=== PATIENT | male | born 1985 | race Caucasian/White ===

== ENCOUNTER 2017-05-24 10:32 | Emergency (ER) | payer OTHER ==
[~2017-05-24] VITALS: Ht 177.8 cm; Wt 99.8 kg
[2017-05-24 10:43] VITALS: BP_SYST 146
[2017-05-24] MEDS ORDERED: IBUPROFEN 800 MG TABLET ONE (11:44)
[2017-05-24] MEDS ORDERED: IBUPROFEN 800 MG TABLET PO ONE (11:45)
[2017-05-24] MEDS ORDERED: BACITRACIN 1 GM OINT TP ONE ×2 (11:45→11:50)
[2017-05-24 11:52] VITALS: BP_SYST 135
== END 2017-05-24 11:52 | disposition home or self-care (01) ==
LOC: SED 10:32
DX: L03.031 Cellulitis of right toe (principal)
CPT/HCPCS: 99283

== ENCOUNTER 2018-11-06 17:27 | Emergency (ER) | payer OTHER ==
[~2018-11-06] VITALS: Ht 177.8 cm; Wt 104.3 kg
[2018-11-06 17:27] VITALS: BP_SYST 145
--- NOTE | 2018-11-06 17:27 | NUR ---
Patient triaged and placed in waiting room. VSS and patient appears in no acute distress at this time. Accompanied by GIRLFRIEND, awaiting available bed, and MD notified of need for MSE.
--- NOTE | 2018-11-06 17:46 | NUR ---
Patient to ER bed 03 for evaluation. Side rails up. Report given to Shanice TAYLOR.
--- NOTE | 2018-11-06 17:50 | NUR ---
DR AKHTAR AT BEDSIDE FOR EVALUATION
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
--- NOTE | 2018-11-06 18:04 | NUR ---
Pt taken to radiology via wheelchair in stable condition
--- NOTE | 2018-11-06 18:17 | NUR ---
PATIENT BACK FROM RADIOLOGY IN STABLE CONDITION. PATIENT STILL COMPLAINING OF PAIN IN NECK AND SHOULDERS. PATIENT STATES HIS HEADACHE IS WORST AT 9/10. SAID HE FEELS TIGHT, PRESSURE AND TIRED. PATIENT DENING DIZZINESS.
[2018-11-06 19:02] VITALS: BP_SYST 137
--- NOTE | 2018-11-06 19:02 | NUR ---
Patient given written and verbal discharge instructions and verbalizes understanding. ER MD Andersen discussed with patient the results and treatment provided. Patient in stable condition. ID arm band removed. Rx of Naprosyn given. Patient educated on pain management and to follow up with PMD. Pain Scale 0. Opportunity for questions provided and answered. Medication side effect fact sheet provided.
== END 2018-11-06 19:02 | disposition home or self-care (01) ==
LOC: SED 17:27
DX: S16.1XXA Strain of muscle, fascia and tendon at neck level, initial encounter (principal); S40.011A Contusion of right shoulder, initial encounter; R03.0 Elevated blood-pressure reading, without diagnosis of hypertension; V43.52XA Car driver injured in collision with other type car in traffic accident, initial encounter; Y93.89 Activity, other specified; Y92.410 Unspecified street and highway as the place of occurrence of the external cause; Y99.8 Other external cause status
CPT/HCPCS: 72125-TC; 73030; 99284

== ENCOUNTER 2021-06-26 09:17 | Emergency (ER) | payer OTHER ==
[~2021-06-26] VITALS: Ht 177.8 cm; Wt 113.4 kg
[2021-06-26 09:39] VITALS: BP_SYST 136
[2021-06-26 11:48] LABS: BILIRUBIN,URINE NEGATIVE (NEGATIVE); BLOOD, URINE 1+ (NEGATIVE); COLOR,URINE YELLOW (YELLOW); GLUCOSE,URINE NEGATIVE (NEGATIVE); KETONES,URINE NEGATIVE (NEGATIVE); LEUKOCYTE ESTERASE ,URINE NEGATIVE (NEGATIVE); NITRITE, URINE NEGATIVE (NEGATIVE); PROTEIN URINE NEGATIVE (NEGATIVE); UROBILINOGEN,URINE 0.2 (0.2-1.0)
[2021-06-26 11:50] LABS: CLARITY/URINE SLIGHTLY CLOUDY (CLEAR)
[2021-06-26 11:54] LABS: BACTERIA,URINE FEW /HPF (None Seen); WBC,URINE 0-3 /HPF (0-3)
[2021-06-26 12:00] LABS: BASOPHILS % (AUTO) 0.5 % (0.0-2.0); EOSINOPHILS # (AUTO) 0.2 K/uL (0.0-0.4); EOSINOPHILS % (AUTO) 1.8 % (0.0-4.0); HEMATOCRIT 47.9 % (36-54); LYMPHOCYTES # (AUTO) 3.6 K/uL (1.0-5.5); LYMPHOCYTES % (AUTO) 38.3 % (20.5-51.5); MEAN CORPUSCULAR HEMOGLOBIN 29 pg (27-31); MEAN CORPUSCULAR HGB CONC 34 % (32-36); MEAN CORPUSCULAR VOLUME 88 fL (79.0-98.0); MONOCYTES # (AUTO) 0.9 K/uL (0.0-1.0); MONOCYTES % (AUTO) 9.9 % (1.7-9.3); NEUTROPHILS # (AUTO) 4.7 K/uL (1.8-7.7); NEUTROPHILS % (AUTO) 49.5 % (40.0-70.0); PLATELET COUNT (AUTO) 304 K/uL (130-430); RED BLOOD CELL COUNT(AUTO) 5.45 MIL/uL (4.2-6.2); WHITE BLOOD COUNT (AUTO) 9.5 K/uL (4.8-10.8)
[2021-06-26 12:20] VITALS: BP_SYST 136
[2021-06-26 12:21] LABS: CALCIUM 9.1 mg/dL (8.4-11.0); CREATININE 0.96 mg/dL (0.55-1.30); POTASSIUM 3.9 mmol/L (3.5-5.1)
[2021-06-26 12:25] LABS: ALBUMIN 4.1 g/dL (3.4-4.8); TOTAL BILIRUBIN 0.4 mg/dL (0.0-1.0)
[2021-06-26 12:28] LABS: C-REACTIVE PROTEIN QUANT 1.2 mg/dL (0-0.5)
== END 2021-06-26 13:45 | disposition left against medical advice (07) ==
LOC: SED 09:17
DX: K62.5 Hemorrhage of anus and rectum (principal)
CPT/HCPCS: 36415; 76376; 80053; 81000; 82150; 83605; 83690; 85025; 86140; 99284

== ENCOUNTER 2022-09-21 15:28 | Emergency (ER) | payer OTHER ==
[~2022-09-21] VITALS: Ht 177.8 cm; Wt 109.8 kg
[2022-09-21 15:30] VITALS: BP_SYST 137
--- NOTE | 2022-09-21 15:30 | NUR ---
BROUGHT BACK TO BED #7 AND TRIAGED. REPORT GIVEN TO PEDRO PABLO
--- NOTE | 2022-09-21 15:30 | NUR ---
ER DR. ARREGUIN AT THE BEDSIDE EXAMINING PT
--- NOTE | 2022-09-21 16:09 | NUR ---
Pt BIB . C/O blood in stool. Pt states he noticed blood 2 weeks ago but worsened saturday night. Pt states pressure in his abdomen but no pain. Pt denies trauma. Pt denies nausea and vomiting but states diarrhea the past 3 days.Pt states colonoscopy a year ago with no complications. Pt states no past hx. Pt AAOX4. VSS. Speaking full complete sentences. PERRLA. Pt skin dry and intact. Pt in bed with side rails up.
[2022-09-21 16:10] LABS: BASOPHILS # (AUTO) 0.3 K/uL (0.0-0.2); BASOPHILS % (AUTO) 2.7 % (0.0-2.0); EOSINOPHILS # (AUTO) 0.1 K/uL (0.0-0.4); HEMATOCRIT 52.2 % (36-54); LYMPHOCYTES # (AUTO) 2.8 K/uL (1.0-5.5); LYMPHOCYTES % (AUTO) 22.9 % (20.5-51.5); MEAN CORPUSCULAR HEMOGLOBIN 28 pg (27-31); MEAN CORPUSCULAR HGB CONC 33 % (32-36); MEAN CORPUSCULAR VOLUME 85 fL (79.0-98.0); MONOCYTES # (AUTO) 0.8 K/uL (0.0-1.0); MONOCYTES % (AUTO) 6.2 % (1.7-9.3); NEUTROPHILS # (AUTO) 8.3 K/uL (1.8-7.7); NEUTROPHILS % (AUTO) 67.2 % (40.0-70.0); PLATELET COUNT (AUTO) 332 K/uL (130-430); RED BLOOD CELL COUNT(AUTO) 6.16 MIL/uL (4.2-6.2); WHITE BLOOD COUNT (AUTO) 12.3 K/uL (4.8-10.8)
[2022-09-21 16:11] LABS: CALCIUM 9.4 mg/dL (8.4-11.0); CREATININE 1.27 mg/dL (0.55-1.30)
[2022-09-21 16:13] LABS: PROTHROMBIN TIME 10.1 SECS (9.5-12.5)
[2022-09-21 16:14] LABS: ALBUMIN 4.3 g/dL (3.4-4.8); TOTAL BILIRUBIN 0.4 mg/dL (0.0-1.0)
[2022-09-21] MEDS ORDERED: OMEP-268 PO (17:53)
[2022-09-21 18:44] VITALS: BP_SYST 131
--- NOTE | 2022-09-21 18:45 | NUR ---
Patient given written and verbal discharge instructions and verbalizes understanding. ER MD discussed with patient the results and treatment provided. Patient in stable condition. ID arm band removed. Rx of OMEPRAZOLE given. Patient educated on pain management and to follow up with PMD. Pain Scale 0/10. Opportunity for questions provided and answered. Medication side effect fact sheet provided.
== END 2022-09-21 18:45 | disposition home or self-care (01) ==
LOC: SED 15:28
DX: K62.5 Hemorrhage of anus and rectum (principal); R10.9 Unspecified abdominal pain; R19.7 Diarrhea, unspecified; Z79.899 Other long term (current) drug therapy
CPT/HCPCS: 36415; 76376; 80053; 82150; 83605; 83690; 85025; 85610-TC; 85730-TC; 86886; 86900; 86901; 99284

== ENCOUNTER 2022-11-20 09:07 | Outpatient (CLI) | payer OTHER ==
[~2022-11-20 09:07] MED LIST: OMEP-268 PO
[2022-11-20] MEDS ORDERED: FUROSEMIDE 20 MG/2 ML VIAL IVP ONE (10:00)
== END 2022-11-20 19:24 | disposition short-term general hospital (02) ==
LOC: SNM 09:07
PROVIDERS: ATTEND Urology Pediatric Urology
DX: C64.1 Malignant neoplasm of right kidney, except renal pelvis (principal)
CPT/HCPCS: 78709; A9562; J1940

== ENCOUNTER 2022-11-22 06:50 | Outpatient (CLI) | payer OTHER | END 2022-11-22 18:11 | disposition home or self-care (01) | LOC: SNM 06:50 | PROVIDERS: ATTEND Urology Pediatric Urology | DX: C64.1 Malignant neoplasm of right kidney, except renal pelvis (principal) | CPT/HCPCS: 78306; A9503 ==

== ENCOUNTER 2023-01-07 08:28 | Outpatient (CLI) | payer OTHER | END 2023-01-07 20:52 | disposition home or self-care (01) | LOC: SRD 08:28 | PROVIDERS: ATTEND Urology Pediatric Urology | DX: Z01.818 Encounter for other preprocedural examination (principal); N28.89 Other specified disorders of kidney and ureter | CPT/HCPCS: 71046-TC ==